=== PATIENT | male | born 1940 | race Caucasian/White ===

== ENCOUNTER 2019-11-21 07:51 | Outpatient (CLI) | payer MEDICARE, OTHER ==
--- NOTE | 2019-11-21 16:00 | RAD ---
PA AND LATERAL CHEST: HISTORY: Preop. COMPARISON: 03/04/2016. FINDINGS: Lung cody appear clear. No infiltrate or vascular congestion. Heart size is normal. Osseous stru ctures unremarkable. IMPRESSION: No acute process. No significant interval change. POS: [facility]
== END 2019-11-21 07:52 | disposition home or self-care (01) ==
LOC: LABBT 07:51
PROVIDERS: ATTEND Thoracic Surgery (Cardiothoracic Vascular Surgery)
DX: Z01.818 Encounter for other preprocedural examination (principal); I35.1 Nonrheumatic aortic (valve) insufficiency; I25.10 Atherosclerotic heart disease of native coronary artery without angina pectoris
CPT/HCPCS: 71046

== ENCOUNTER 2022-04-02 10:05 | Outpatient (CLI) | payer MEDICARE | END 2022-04-02 10:06 | disposition home or self-care (01) | LOC: BICMAMMO 10:05 | PROVIDERS: ATTEND Internal Medicine Rheumatology | DX: M06.4 Inflammatory polyarthropathy (principal); R70.0 Elevated erythrocyte sedimentation rate; M85.851 Other specified disorders of bone density and structure, right thigh; M85.852 Other specified disorders of bone density and structure, left thigh | CPT/HCPCS: 77080 ==

== ENCOUNTER 2022-10-03 13:09 | Inpatient (IN) | payer MEDICARE ==
[2022-10-03] MEDS ORDERED: Ondansetron PF 4 MG/2 ML Vial IVP PRN (14:37)
[2022-10-03] MEDS ORDERED: Benzonatate 100 MG CAP PO PRN (14:49)
[2022-10-03 15:44] VITALS: BMI 24.3
[2022-10-03] MEDS: Sodium Chloride 0.9% 1,000 ML IV SCH (16:37)
[2022-10-03] MEDS: cefTRIAXone\\ROCEPHIN 1 GM in Sodium Chloride 0.9% 100 ML IVPB SCH (16:50)
[2022-10-03] MEDS ORDERED: Heparin 25,000 units/D5W 500 ML IV SCH (18:00)
[2022-10-03] MEDS ORDERED: Aspirin 81 mg Enteric Coated Tablet PO SCH (20:00)
[2022-10-03] MEDS: Ipratropium/Albuterol 3 ML NEB IPPB SCH (20:03)
[2022-10-03] MEDS: Rosuvastatin 20 MG TAB PO SCH (20:26)
[2022-10-03] MEDS: Zolpidem Tartrate 5 MG TAB PO PRN (20:26)
[2022-10-03] MEDS: Azithromycin 500 MG in Sodium Chloride 0.9% 250 ML 250 ML IVPB SCH (20:46)
[2022-10-03] MEDS: Famotidine 20 MG TAB PO SCH (21:06)
[2022-10-03 22:56] LABS: CKMB 13.5 ng/mL (0-6.6)
[2022-10-03] MEDS ORDERED: Nitroglycerin 2% Ointment 1 INCH/1 GM Packet TOP SCH (23:15)
[2022-10-04] MEDS: Ipratropium/Albuterol 3 ML NEB IPPB SCH ×4 (00:16→18:23)
[2022-10-04 02:10] LABS: #Monocytes 0.7 thou/uL (0.11-0.59); #Neutrophils 10.2 thou/uL (1.40-6.50); %Basophils 0.2 % (0.0-1.0); %Lymphocytes 11.8 % (21.0-51.0); %Monocytes 5.8 % (0.0-10.0); %Neutrophils 81.6 % (42.0-75.0); Hemoglobin 10.9 g/dL (14.0-18.0); Mean Corpuscular HGB CONC 33.9 g/dL (32.0-36.0); Mean Corpuscular Volume 106.3 fl (78.0-98.0); Mean Platelet Volume 11.6 fL (7.4-10.4); Platelet Count 122 10x3/uL (130-400); RBC Distribution Width 15.4 % (11.5-14.5); Red Blood Cell (RBC) Count 3.03 mill/uL (4.70-6.10); White Blood Cell (WBC) Count 12.5 10x3/uL (4.8-10.8)
[2022-10-04 02:25] LABS: Hemoglobin A1c 5.4 % (4.0-6.0)
[2022-10-04 02:31] LABS: PTT 162.9 sec (22.9-36.1)
[2022-10-04 02:39] LABS: Anion Gap 13 mmol/L (10-20); BUN (Urea Nitrogen) 28 mg/dL (8.4-25.7); CK (CPK) 143 U/L (30-200); Calc. Creatinine Clearance 54 mL/min (70-130); Calcium 8.7 mg/dL (7.8-10.44); Carbon Dioxide 20 mmol/L (23-31); Cardiac Risk 1.6 (Less than 4.5); Chloride 107 mmol/L (98-107); Cholesterol 81 mg/dl (< 200 Desired); Estimated GFR 68; Glucose 138 mg/dL (83-110); HDL Cholesterol 50 mg/dL (>60 Neg Risk); LDL Cholesterol, Calculated 19 mg/dL; Potassium 3.3 mmol/L (3.5-5.1); Sodium 137 mmol/L (136-145); Triglycerides 61 mg/dL (Less than 150)
[2022-10-04 02:59] LABS: CKMB 9.9 ng/mL (0-6.6)
[2022-10-04 05:33] LABS: Critical Call Chem Troponin I RESULT DECREASING
[2022-10-04] MEDS: Budesonide 0.5 MG/2 ML NEB NEB SCH ×2 (07:52→18:24)
[2022-10-04] MEDS ORDERED: Methotrexate Sodium 2.5 MG TAB PO SCH (09:00)
[2022-10-04] MEDS: predniSONE 5 MG TAB PO SCH (09:06)
[2022-10-04] MEDS: Allopurinol 300 MG TAB PO SCH (09:06)
[2022-10-04] MEDS: Famotidine 20 MG TAB PO SCH ×2 (09:06→20:17)
[2022-10-04] MEDS: Amlodipine 5 MG TAB PO SCH (09:06)
[2022-10-04] MEDS: Folic Acid 1 MG TAB PO SCH (09:07)
[2022-10-04] MEDS: Aspirin 81 mg Enteric Coated Tablet PO SCH (09:07)
[2022-10-04] MEDS: Sodium Chloride 0.9% 1,000 ML IV SCH (09:07)
[2022-10-04] MEDS: Heparin 10,000 UNITS/ 10 ML VIAL SLOW IVP SCH ×2 (14:23→20:58)
[2022-10-04] MEDS: cefTRIAXone\\ROCEPHIN 1 GM in Sodium Chloride 0.9% 100 ML IVPB SCH (14:34)
[2022-10-04] MEDS: Rosuvastatin 20 MG TAB PO SCH (20:17)
[2022-10-04] MEDS: Sacubitril 24MG/Valsartan 26 MG TAB PO SCH (20:17)
[2022-10-04] MEDS: Zolpidem Tartrate 5 MG TAB PO PRN (20:18)
[2022-10-04] MEDS: Azithromycin 500 MG in Sodium Chloride 0.9% 250 ML 250 ML IVPB SCH (20:19)
[2022-10-04] MEDS: Acetaminophen 325 MG TAB PO SCH ×3 (21:34→22:55)
[2022-10-05] MEDS: Ipratropium/Albuterol 3 ML NEB IPPB SCH ×5 (00:16→23:00)
[2022-10-05] MEDS: Acetaminophen 325 MG TAB PO SCH ×5 (03:35→18:03)
[2022-10-05 03:45] LABS: #Monocytes 0.3 thou/uL (0.11-0.59); #Neutrophils 9.4 thou/uL (1.40-6.50); %Basophils 0.2 % (0.0-1.0); %Lymphocytes 8.7 % (21.0-51.0); %Monocytes 2.7 % (0.0-10.0); Hemoglobin 10.8 g/dL (14.0-18.0); Mean Corpuscular HGB CONC 33.9 g/dL (32.0-36.0); Mean Corpuscular Hemoglobin 35.8 pg (27.0-31.0); Mean Corpuscular Volume 105.6 fl (78.0-98.0); Mean Platelet Volume 11.6 fL (7.4-10.4); Platelet Count 139 10x3/uL (130-400); RBC Distribution Width 15.4 % (11.5-14.5); Red Blood Cell (RBC) Count 3.02 mill/uL (4.70-6.10); White Blood Cell (WBC) Count 10.7 10x3/uL (4.8-10.8)
[2022-10-05 04:06] LABS: Anion Gap 12 mmol/L (10-20); BUN (Urea Nitrogen) 29 mg/dL (8.4-25.7); Calc. Creatinine Clearance 54 mL/min (70-130); Calcium 8.5 mg/dL (7.8-10.44); Carbon Dioxide 21 mmol/L (23-31); Chloride 105 mmol/L (98-107); Estimated GFR 69; Glucose 140 mg/dL (83-110); Potassium 3.7 mmol/L (3.5-5.1); Sodium 134 mmol/L (136-145)
[2022-10-05] MEDS: Budesonide 0.5 MG/2 ML NEB NEB SCH ×2 (06:48→18:48)
[2022-10-05] MEDS ORDERED: Sodium Chloride 0.9% 1,000 ML IV SCH (08:02)
[2022-10-05] MEDS: Allopurinol 300 MG TAB PO SCH (08:59)
[2022-10-05] MEDS: Amlodipine 5 MG TAB PO SCH (08:59)
[2022-10-05] MEDS: Famotidine 20 MG TAB PO SCH ×2 (09:00→20:51)
[2022-10-05] MEDS: Folic Acid 1 MG TAB PO SCH (09:00)
[2022-10-05] MEDS: predniSONE 5 MG TAB PO SCH (09:00)
[2022-10-05] MEDS: Aspirin 81 mg Enteric Coated Tablet PO SCH (09:00)
[2022-10-05] MEDS: Sacubitril 24MG/Valsartan 26 MG TAB PO SCH ×2 (09:01→20:51)
[2022-10-05] MEDS ORDERED: Furosemide 40 MG/4 ML VIAL ONE (13:09)
[2022-10-05 13:11] VITALS: BP 120/61
[2022-10-05] MEDS: Heparin 10,000 UNITS/ 10 ML VIAL SLOW IVP SCH ×2 (13:14→21:01)
[2022-10-05] MEDS ORDERED: Morphine 2 MG/ML VIAL SLOW IVP SCH (13:30)
[2022-10-05 13:47] LABS: Actual Bicarbonate (HCO3a) 17.7 mEq/L (22-28); Base Excess (BEa) -4.1 mEq/L (-2.0 to +3.0); Calcium, Ionized (arterial) 1.09 mmol/L (1.12-1.30); Carboxyhemoglobin (COHb) 0.5 gm% (0.0-3.0); Hematocrit-ABG 38 % (42.0-52.0); Hemoglobin (Hb) 12.8 g/dL (14.0-18.0); O2 Tension (PaO2), arterial 66.7 mmHg (> 60.0); Potassium - ABG Lab 3.59 mmol/L (3.70-5.30); pH, Arterial 7.481 (7.35-7.45)
[2022-10-05 13:50] LABS: CO2 Tension 24.3 mmHg (35.0-45.0); Puncture Site Right Radial
[2022-10-05 13:51] LABS: ALV-art Gradient 615.925 mmHg (0-20)
[2022-10-05] MEDS: cefTRIAXone\\ROCEPHIN 1 GM in Sodium Chloride 0.9% 100 ML IVPB SCH (15:14)
[2022-10-05] MEDS ORDERED: Furosemide 40 MG/4 ML VIAL SLOW IVP SCH (15:15)
[2022-10-05] MEDS ORDERED: Spironolactone 25 MG TAB PO SCH (15:45)
[2022-10-05] MEDS: Azithromycin 500 MG in Sodium Chloride 0.9% 250 ML 250 ML IVPB SCH (20:50)
[2022-10-05] MEDS: Zolpidem Tartrate 5 MG TAB PO PRN (20:52)
[2022-10-05] MEDS: Rosuvastatin 20 MG TAB PO SCH (21:01)
[2022-10-06 03:58] LABS: #Monocytes 0.2 thou/uL (0.11-0.59); #Neutrophils 10.2 thou/uL (1.40-6.50); %Basophils 0.1 % (0.0-1.0); %Eosinophils 0.3 % (0.0-10.0); %Lymphocytes 9.1 % (21.0-51.0); %Monocytes 1.4 % (0.0-10.0); %Neutrophils 88.7 % (42.0-75.0); Hemoglobin 11.7 g/dL (14.0-18.0); Mean Corpuscular HGB CONC 33.9 g/dL (32.0-36.0); Mean Corpuscular Hemoglobin 34.6 pg (27.0-31.0); Mean Platelet Volume 12.2 fL (7.4-10.4); Platelet Count 173 10x3/uL (130-400); RBC Distribution Width 14.8 % (11.5-14.5); Red Blood Cell (RBC) Count 3.38 mill/uL (4.70-6.10); White Blood Cell (WBC) Count 11.5 10x3/uL (4.8-10.8)
[2022-10-06 04:28] LABS: Anion Gap 16 mmol/L (10-20); BUN (Urea Nitrogen) 35 mg/dL (8.4-25.7); Calc. Creatinine Clearance 49 mL/min (70-130); Calcium 8.7 mg/dL (7.8-10.44); Carbon Dioxide 18 mmol/L (23-31); Chloride 103 mmol/L (98-107); Estimated GFR 61; Glucose 142 mg/dL (83-110); Potassium 3.6 mmol/L (3.5-5.1); Sodium 133 mmol/L (136-145)
[2022-10-06 04:33] LABS: Mean Corpuscular Volume 102.1 fl (78.0-98.0)
[2022-10-06] MEDS: Budesonide 0.5 MG/2 ML NEB NEB SCH ×2 (06:00→18:30)
[2022-10-06] MEDS: Ipratropium/Albuterol 3 ML NEB IPPB SCH ×3 (06:00→18:30)
[2022-10-06] MEDS ORDERED: Furosemide 40 MG/4 ML VIAL SLOW IVP SCH (06:00)
[2022-10-06] MEDS: Folic Acid 1 MG TAB PO SCH (11:04)
[2022-10-06] MEDS: Famotidine 20 MG TAB PO SCH ×2 (11:04→20:42)
[2022-10-06] MEDS: Aspirin 81 mg Enteric Coated Tablet PO SCH (11:04)
[2022-10-06] MEDS: Allopurinol 300 MG TAB PO SCH (11:05)
[2022-10-06] MEDS: Acetaminophen 325 MG TAB PO PRN (11:05)
[2022-10-06] MEDS: predniSONE 5 MG TAB PO SCH (11:07)
[2022-10-06] MEDS: Sacubitril 24MG/Valsartan 26 MG TAB PO SCH (11:07)
[2022-10-06] MEDS: Spironolactone 25 MG TAB PO SCH (11:08)
[2022-10-06] MEDS: Empagliflozin 10 MG TAB PO SCH (11:10)
[2022-10-06] MEDS: Furosemide 100 MG/10 ML VIAL SLOW IVP SCH (13:54)
[2022-10-06] MEDS: cefTRIAXone\\ROCEPHIN 1 GM in Sodium Chloride 0.9% 100 ML IVPB SCH (13:55)
[2022-10-06] MEDS: Azithromycin 500 MG in Sodium Chloride 0.9% 250 ML 250 ML IVPB SCH (20:39)
[2022-10-06] MEDS: Rosuvastatin 20 MG TAB PO SCH (22:07)
[2022-10-06] MEDS: Zolpidem Tartrate 5 MG TAB PO PRN (22:07)
[2022-10-06] MEDS ORDERED: niCARdipine 25 MG in Sodium Chloride 0.9% 250 ML 250 ML IVPB PRN (22:49)
[2022-10-07] MEDS: Ipratropium/Albuterol 3 ML NEB IPPB SCH ×4 (00:10→18:44)
[2022-10-07 03:56] LABS: #Eosinphils 0.1 thou/uL (0.0-0.7); #Monocytes 0.2 thou/uL (0.11-0.59); #Neutrophils 8.7 thou/uL (1.40-6.50); %Basophils 0.2 % (0.0-1.0); %Eosinophils 1.2 % (0.0-10.0); %Lymphocytes 6.9 % (21.0-51.0); %Monocytes 2.3 % (0.0-10.0); %Neutrophils 89.1 % (42.0-75.0); Hemoglobin 11.5 g/dL (14.0-18.0); Mean Corpuscular HGB CONC 35.1 g/dL (32.0-36.0); Mean Corpuscular Hemoglobin 35.3 pg (27.0-31.0); Mean Corpuscular Volume 100.6 fl (78.0-98.0); Platelet Count 169 10x3/uL (130-400); RBC Distribution Width 14.6 % (11.5-14.5); Red Blood Cell (RBC) Count 3.26 mill/uL (4.70-6.10); White Blood Cell (WBC) Count 9.7 10x3/uL (4.8-10.8)
[2022-10-07 05:04] LABS: Anion Gap 15 mmol/L (10-20); BUN (Urea Nitrogen) 35 mg/dL (8.4-25.7); Calc. Creatinine Clearance 46 mL/min (70-130); Calcium 8.8 mg/dL (7.8-10.44); Carbon Dioxide 21 mmol/L (23-31); Chloride 102 mmol/L (98-107); Estimated GFR 54; Glucose 108 mg/dL (83-110); Potassium 3.1 mmol/L (3.5-5.1); Sodium 135 mmol/L (136-145)
[2022-10-07] MEDS: Furosemide 100 MG/10 ML VIAL SLOW IVP SCH ×2 (05:54→14:33)
[2022-10-07] MEDS: predniSONE 5 MG TAB PO SCH (07:14)
[2022-10-07] MEDS: Empagliflozin 10 MG TAB PO SCH (07:14)
[2022-10-07] MEDS: Spironolactone 25 MG TAB PO SCH (07:14)
[2022-10-07] MEDS: Aspirin 81 mg Enteric Coated Tablet PO SCH (07:14)
[2022-10-07] MEDS: Folic Acid 1 MG TAB PO SCH (07:15)
[2022-10-07] MEDS: Famotidine 20 MG TAB PO SCH ×2 (07:15→20:59)
[2022-10-07] MEDS: Allopurinol 300 MG TAB PO SCH (07:15)
[2022-10-07] MEDS: Budesonide 0.5 MG/2 ML NEB NEB SCH ×2 (07:42→18:45)
[2022-10-07] MEDS ORDERED: Potassium Chloride 20 MEQ TAB PO SCH (08:15)
[2022-10-07] MEDS ORDERED: Electrolyte Replacement Protocol 1 EACH FS SCH (08:15)
[2022-10-07] MEDS ORDERED: Electrolyte Replacement Protocol FS PRN (08:15)
[2022-10-07] MEDS: cefTRIAXone\\ROCEPHIN 1 GM in Sodium Chloride 0.9% 100 ML IVPB SCH (14:33)
[2022-10-07] MEDS: Azithromycin 500 MG in Sodium Chloride 0.9% 250 ML 250 ML IVPB SCH (20:01)
[2022-10-07] MEDS: Rosuvastatin 20 MG TAB PO SCH (20:59)
[2022-10-07] MEDS: Acetaminophen 325 MG TAB PO PRN (21:27)
[2022-10-07 21:52] VITALS: TEMP 97.7
== END 2022-10-07 22:56 | disposition short-term general hospital (02) | DRG 280 ==
LOC: 2NO 15:02 → CCU 10-05 14:33
PROVIDERS: ADMIT Specialist; ATTEND Specialist
PROC: 4A033R1 Measurement of Arterial Saturation, Peripheral, Percutaneous Approach (ICD-10-PCS; principal; 2022-10-03)
PROC: 5A0945A Assistance with Respiratory Ventilation, 24-96 Consecutive Hours, High Flow/Velocity Cannula (ICD-10-PCS; 2022-10-05)
DX: I48.91 Unspecified atrial fibrillation (principal); J18.9 Pneumonia, unspecified organism; I21.A1 Myocardial infarction type 2; J96.01 Acute respiratory failure with hypoxia; I51.0 Cardiac septal defect, acquired; R64 Cachexia; I42.9 Cardiomyopathy, unspecified; E78.5 Hyperlipidemia, unspecified; I11.0 Hypertensive heart disease with heart failure; I50.9 Heart failure, unspecified; I34.0 Nonrheumatic mitral (valve) insufficiency; M06.9 Rheumatoid arthritis, unspecified; M10.9 Gout, unspecified; Z95.1 Presence of aortocoronary bypass graft; Z98.84 Bariatric surgery status; Z95.2 Presence of prosthetic heart valve; Z98.52 Vasectomy status; Z79.52 Long term (current) use of systemic steroids; Z79.899 Other long term (current) drug therapy; Z82.49 Family history of ischemic heart disease and other diseases of the circulatory system; Z87.891 Personal history of nicotine dependence; Z68.24 Body mass index [BMI] 24.0-24.9, adult
CPT/HCPCS: 36415; 71045; 80048; 80061; 82550; 82553; 82805; 83036; 83880; 84484; 85025; 85730; 93005; 93010; 93306; 94640; J0456; J0696; J1644; J1650; J1940; J2272; J3490; J7050; J7512; J7620; J7626; J8610

== ENCOUNTER 2022-12-04 06:47 | Emergency (ER) | payer MEDICARE ==
[2022-12-04 09:39] LABS: Bilirubin Negative (Negative); Blood, Urine Negative (Negative); CAUTI Indications for Culture Dysuria,urgency,freq; Clarity Clear (Clear); Glucose, Urine (Dipstick) 70 mg/dL (Negative); Ketone, Urine Negative (Negative); Leukocyte 500 Leu/uL (Negative); Nitrite Negative (Negative); Protein, Urine (Dipstick) 20 mg/dL (Neg-Trace); RBC/HPF 0-3 HPF (0-3); Specific Gravity, Urine 1.018 (1.002-1.036); Squamous Epithelial None Seen HPF (0-3); Urobilinogen Normal mg/dL (Less than 2); pH, Urine 6.5 (5.0-9.0)
[2022-12-04 09:46] LABS: Bacteria/HPF 1+ HPF (None Seen); WBC/HPF 21-50 HPF (0-3)
[2022-12-04 09:53] LABS: Urine Culture Reflex Yes Yes
== END 2022-12-04 10:40 | disposition home or self-care (01) ==
LOC: ERS 06:47
DX: T83.011A Breakdown (mechanical) of indwelling urethral catheter, initial encounter (principal); N39.0 Urinary tract infection, site not specified; I10 Essential (primary) hypertension; Z79.899 Other long term (current) drug therapy; Z87.891 Personal history of nicotine dependence
CPT/HCPCS: 51702; 81001; 87086

== ENCOUNTER 2023-06-11 14:42 | Outpatient (CLI) | payer MEDICARE | END 2023-06-11 14:43 | disposition home or self-care (01) | LOC: RAD 14:42 | PROVIDERS: ATTEND Internal Medicine | DX: R06.00 Dyspnea, unspecified (principal); R91.8 Other nonspecific abnormal finding of lung field; J84.10 Pulmonary fibrosis, unspecified | CPT/HCPCS: 36415; 71046; 80048; 83520; 83880; 85025; 86140; 86200 ==

== ENCOUNTER 2023-06-28 20:35 | Inpatient (IN) | payer MEDICARE ==
[~2023-06-28 20:35] MED LIST: Iopamidol 370 76% 100 ML VIAL ONE
[2023-06-28 21:18] LABS: #Monocytes 0.2 thou/uL (0.11-0.59); #Neutrophils 3.5 thou/uL (1.40-6.50); %Basophils 0.2 % (0.0-1.0); %Eosinophils 0.4 % (0.0-10.0); Hematocrit 38.7 % (42.0-52.0); Mean Corpuscular HGB CONC 33.6 g/dL (32.0-36.0); Mean Corpuscular Hemoglobin 34.9 pg (27.0-31.0); Mean Platelet Volume 10.6 fL (7.4-10.4); Platelet Count 139 10x3/uL (130-400); Red Blood Cell (RBC) Count 3.72 mill/uL (4.70-6.10); White Blood Cell (WBC) Count 4.8 10x3/uL (4.8-10.8)
[2023-06-28 21:36] LABS: ALT (SGPT) 26 U/L (8-55); AST (SGOT) 36 U/L (5-34); Albumin 3.6 g/dL (3.4-4.8); Alkaline Phosphatase 75 U/L (40-110); Anion Gap 16 mmol/L (10-20); BUN (Urea Nitrogen) 31 mg/dL (8.4-25.7); Bilirubin, Total 0.5 mg/dL (0.2-1.2); Calc. Creatinine Clearance 0 mL/min (70-130); Calcium 8.7 mg/dL (7.8-10.44); Carbon Dioxide 20 mmol/L (23-31); Chloride 102 mmol/L (98-107); Estimated GFR 48; Globulin 3.3 g/dL (2.4-3.5); Glucose 102 mg/dL (83-110); Potassium 5.2 mmol/L (3.5-5.1); Protein, Total 6.9 g/dL (5.8-8.1); Sodium 133 mmol/L (136-145)
[2023-06-28] MEDS ORDERED: predniSONE 20 MG TAB ONE (21:37)
[2023-06-28] MEDS ORDERED: Sodium Chloride 0.9% 100 ML ONE (21:38)
[2023-06-28] MEDS ORDERED: Ipratropium/Albuterol 3 ML NEB ONE (21:38)
[2023-06-28] MEDS ORDERED: cefTRIAXone (ROCEPHIN) 2 GM VIAL ONE (21:38)
[2023-06-28] MEDS ORDERED: Azithromycin 500 MG VIAL ONE (21:38)
[2023-06-28] MEDS ORDERED: Magnesium 2 GM/50 ML BAG (IN WATER) ONE (21:38)
[2023-06-28 21:45] LABS: Actual Bicarbonate (HCO3v) 20.4 mEq/L (22-28); Base Excess -2.5 mEq/L (-2.0 to +3.0); Calcium, Ionized (venous) 1.05 mmol/L (1.16-1.32); Chloride (VBG) 101 mmol/L (98-106); Hematocrit-VBG 40 % (42.0-52.0); Hemoglobin (Hb) 13.7 g/dL (12.6-17.4); Potassium (VBG) 5.01 mmol/L (3.70-5.30); Sodium 131 mmol/L (133-146)
[2023-06-28] MEDS ORDERED: Nitroglycerin 2% Ointment 1 INCH/1 GM Packet ONE (22:55)
[2023-06-28] MEDS ORDERED: Furosemide 40 MG (4 mL) VIAL ONE (22:55)
[2023-06-28] MEDS ORDERED: Ondansetron PF 4 MG/2 ML Vial IVP PRN (23:44)
[2023-06-28] MEDS ORDERED: Acetaminophen 325 MG TAB PO PRN (23:44)
[2023-06-29] MEDS ORDERED: Pantoprazole 40 MG VIAL ONE ×2 (00:50→11:10)
[2023-06-29] MEDS: Pantoprazole 40 MG VIAL IVP SCH ×2 (00:56→11:23)
[2023-06-29] MEDS: Sodium Chloride 0.9% 500 ML IV SCH (00:56)
[2023-06-29 01:25] LABS: Troponin I 0.026 ng/mL (< 0.028)
[2023-06-29] MEDS ORDERED: Hydrocortisone Sod Succ/PF 100 mg/2 ml Vial ONE ×4 (02:08→14:17)
[2023-06-29] MEDS: Hydrocortisone Sod Succ/PF 100 mg/2 ml Vial IVP SCH ×2 (02:24→11:22)
[2023-06-29] MEDS: Ipratropium/Albuterol 3 ML NEB NEB SCH (03:01)
[2023-06-29 04:12] LABS: #Neutrophils 2.7 thou/uL (1.40-6.50); %Basophils 0.3 % (0.0-1.0); %Lymphocytes 27.4 % (21.0-51.0); %Monocytes 1.1 % (0.0-10.0); %Neutrophils 70.7 % (42.0-75.0); Hematocrit 35.3 % (42.0-52.0); Mean Corpuscular Hemoglobin 34.8 pg (27.0-31.0); Mean Corpuscular Volume 102.3 fl (78.0-98.0); Mean Platelet Volume 11.1 fL (7.4-10.4); Platelet Count 119 10x3/uL (130-400); RBC Distribution Width 16.1 % (11.5-14.5); Red Blood Cell (RBC) Count 3.45 mill/uL (4.70-6.10); White Blood Cell (WBC) Count 3.8 10x3/uL (4.8-10.8)
[2023-06-29 04:23] LABS: INR-International Normal Ratio 1.1; Prothrombin Time 13.9 sec (12.0-14.7)
[2023-06-29 04:30] LABS: Iron 20 ug/dL (65-175); Iron Binding Capacity, Total 171 mcg/dL (261-462); Magnesium 2.3 mg/dL (1.6-2.6)
[2023-06-29 04:31] LABS: Anion Gap 17 mmol/L (10-20); BUN (Urea Nitrogen) 28 mg/dL (8.4-25.7); Calc. Creatinine Clearance 39 mL/min (70-130); Calcium 8.4 mg/dL (7.8-10.44); Carbon Dioxide 17 mmol/L (23-31); Chloride 103 mmol/L (98-107); Estimated GFR 49; Glucose 144 mg/dL (83-110); Iron 19 ug/dL (65-175); Iron Binding Capacity, Total 169 mcg/dL (261-462); Potassium 4.5 mmol/L (3.5-5.1); Sodium 132 mmol/L (136-145)
[2023-06-29 04:59] LABS: Influenza A by NAA DETECTED (NotDetected); Influenza B by NAA Not Detected (NotDetected); SARS-CoV-2 NAA Rapid Test Not Detected (NotDetected)
[2023-06-29] MEDS: Vancomycin (BATCH) 1.5 GM in Premix 1 BAG IVPB SCH (05:36)
[2023-06-29] MEDS ORDERED: methylPREDNISolone Sod Succ 40 MG VIAL IVP SCH (06:00)
[2023-06-29] MEDS ORDERED: Ipratropium/Albuterol 3 ML NEB ONE ×2 (07:19→14:36)
[2023-06-29] MEDS ORDERED: Oseltamivir 75 MG CAP PO SCH (10:00)
[2023-06-29] MEDS ORDERED: Cefepime 2 GM VIAL ONE (11:06)
[2023-06-29] MEDS ORDERED: Sodium Chloride 0.9% 100 ML ONE (11:06)
[2023-06-29] MEDS: Cefepime 2 GM in Sodium Chloride 0.9% 100 ML IVPB SCH (11:22)
[2023-06-29] MEDS ORDERED: cefTRIAXone\\ROCEPHIN 2 GM in Sodium Chloride 0.9% 100 ML IVPB SCH (22:00)
[2023-06-29] MEDS ORDERED: Azithromycin 500 MG in Sodium Chloride 0.9% 250 ML 250 ML IVPB SCH (23:00)
[2023-06-29] MEDS: Vancomycin 1 GM in Premix 1 BAG IVPB SCH (23:15)
[2023-06-29] MEDS: Oseltamivir 75 MG CAP PO SCH (23:15)
[2023-06-30 05:36] LABS: #Monocytes 0.2 thou/uL (0.11-0.59); #Neutrophils 4.6 thou/uL (1.40-6.50); %Basophils 0.2 % (0.0-1.0); %Lymphocytes 11.1 % (21.0-51.0); %Monocytes 2.8 % (0.0-10.0); %Neutrophils 85.5 % (42.0-75.0); Hematocrit 32.9 % (42.0-52.0); Hemoglobin 11.3 g/dL (14.0-18.0); Mean Corpuscular HGB CONC 34.3 g/dL (32.0-36.0); Mean Corpuscular Hemoglobin 33.9 pg (27.0-31.0); Mean Corpuscular Volume 98.8 fl (78.0-98.0); Mean Platelet Volume 11.1 fL (7.4-10.4); Platelet Count 134 10x3/uL (130-400); Red Blood Cell (RBC) Count 3.33 mill/uL (4.70-6.10); White Blood Cell (WBC) Count 5.4 10x3/uL (4.8-10.8)
[2023-06-30 05:59] LABS: Anion Gap 13 mmol/L (10-20); BUN (Urea Nitrogen) 25 mg/dL (8.4-25.7); Calc. Creatinine Clearance 48 mL/min (70-130); Calcium 8.5 mg/dL (7.8-10.44); Carbon Dioxide 18 mmol/L (23-31); Chloride 105 mmol/L (98-107); Estimated GFR 63; Glucose 145 mg/dL (83-110); Sodium 132 mmol/L (136-145); Vancomycin, Random 21.4 ug/mL (See Comment)
[2023-06-30] MEDS: Hydrocortisone Sod Succ/PF 100 mg/2 ml Vial IVP SCH (06:35)
[2023-06-30 07:32] LABS: Legionella Urinary Ag Negative (Negative); Strep pneumo Urine Ag NEGATIVE (NEGATIVE)
[2023-06-30 08:50] VITALS: BMI 21.5
[2023-06-30] MEDS ORDERED: Non-Formulary Item 1 EACH (Nebivolol Hcl [Nebivolol Hcl] 10 MG Tablet) PO SCH (09:00)
[2023-06-30] MEDS ORDERED: FINERENONE 10 MG PO SCH (09:00)
[2023-06-30] MEDS: Tamsulosin HCl 0.4 MG CAP PO SCH (09:11)
[2023-06-30] MEDS: Finasteride 5 MG TAB PO SCH (09:11)
[2023-06-30] MEDS: Nebivolol HCl 5 MG TAB PO SCH (09:12)
[2023-06-30] MEDS: FINERENONE 10 MG PO SCH (12:18)
[2023-06-30] MEDS: Furosemide 20 MG (2 mL) VIAL SLOW IVP SCH (14:29)
[2023-06-30] MEDS: Cefepime 1 GM in Sodium Chloride 0.9% 100 ML IVPB SCH (21:38)
[2023-06-30] MEDS: Oseltamivir 6 MG/ML ORAL SUSP PO SCH (21:39)
[2023-06-30] MEDS: Senokot S 8.6-50 MG TAB PO SCH (21:48)
[2023-07-01] MEDS: Vancomycin (BATCH) 1.25 GM in Premix 1 BAG IVPB SCH (00:13)
[2023-07-01 05:26] LABS: #Monocytes 0.2 thou/uL (0.11-0.59); #Neutrophils 4.3 thou/uL (1.40-6.50); %Lymphocytes 11.7 % (21.0-51.0); %Monocytes 4.4 % (0.0-10.0); %Neutrophils 83.3 % (42.0-75.0); Hematocrit 32.2 % (42.0-52.0); Hemoglobin 11.1 g/dL (14.0-18.0); Mean Corpuscular HGB CONC 34.5 g/dL (32.0-36.0); Mean Corpuscular Hemoglobin 33.8 pg (27.0-31.0); Mean Corpuscular Volume 98.2 fl (78.0-98.0); Mean Platelet Volume 10.6 fL (7.4-10.4); Platelet Count 138 10x3/uL (130-400); RBC Distribution Width 15.9 % (11.5-14.5); Red Blood Cell (RBC) Count 3.28 mill/uL (4.70-6.10); White Blood Cell (WBC) Count 5.2 10x3/uL (4.8-10.8)
[2023-07-01 05:46] LABS: Anion Gap 13 mmol/L (10-20); BUN (Urea Nitrogen) 20 mg/dL (8.4-25.7); Calc. Creatinine Clearance 50 mL/min (70-130); Calcium 8.2 mg/dL (7.8-10.44); Carbon Dioxide 19 mmol/L (23-31); Chloride 104 mmol/L (98-107); Estimated GFR 69; Glucose 129 mg/dL (83-110); Magnesium 2.4 mg/dL (1.6-2.6); Potassium 3.1 mmol/L (3.5-5.1); Sodium 133 mmol/L (136-145)
[2023-07-01 05:47] LABS: Vancomycin, Random 26.4 ug/mL (See Comment)
[2023-07-01] MEDS ORDERED: Nebivolol HCl 5 MG TAB PO SCH (09:00)
[2023-07-01] MEDS: Senokot S 8.6-50 MG TAB PO SCH (09:02)
[2023-07-01] MEDS: Aspirin Chewable 81 MG TAB PO SCH (09:02)
[2023-07-01] MEDS: Potassium Chloride 20 MEQ TAB PO SCH ×2 (09:23→16:39)
[2023-07-01] MEDS: Oseltamivir 75 MG CAP PO SCH (20:50)
[2023-07-02] MEDS: Potassium Chloride 20 MEQ TAB PO SCH (13:27)
[2023-07-03 05:07] LABS: #Monocytes 0.5 thou/uL (0.11-0.59); #Neutrophils 5.2 thou/uL (1.40-6.50); %Basophils 0.1 % (0.0-1.0); %Lymphocytes 12.4 % (21.0-51.0); %Monocytes 7.5 % (0.0-10.0); %Neutrophils 78.4 % (42.0-75.0); Hematocrit 34.9 % (42.0-52.0); Mean Corpuscular HGB CONC 34.4 g/dL (32.0-36.0); Mean Corpuscular Hemoglobin 33.8 pg (27.0-31.0); Mean Corpuscular Volume 98.3 fl (78.0-98.0); Mean Platelet Volume 10.8 fL (7.4-10.4); Platelet Count 127 10x3/uL (130-400); RBC Distribution Width 15.9 % (11.5-14.5); Red Blood Cell (RBC) Count 3.55 mill/uL (4.70-6.10); White Blood Cell (WBC) Count 6.7 10x3/uL (4.8-10.8)
[2023-07-03 05:27] LABS: Anion Gap 13 mmol/L (10-20); BUN (Urea Nitrogen) 23 mg/dL (8.4-25.7); Calc. Creatinine Clearance 54 mL/min (70-130); Calcium 8.1 mg/dL (7.8-10.44); Carbon Dioxide 22 mmol/L (23-31); Chloride 102 mmol/L (98-107); Estimated GFR 75; Glucose 125 mg/dL (83-110); Potassium 3.8 mmol/L (3.5-5.1); Sodium 133 mmol/L (136-145)
[2023-07-03] MEDS: FINERENONE 10 MG PO SCH (09:48)
[2023-07-03] MEDS: Furosemide 20 MG (2 mL) VIAL SLOW IVP SCH (09:48)
[2023-07-04 05:12] LABS: #Monocytes 0.6 thou/uL (0.11-0.59); #Neutrophils 7.4 thou/uL (1.40-6.50); %Basophils 0.2 % (0.0-1.0); %Eosinophils 0.1 % (0.0-10.0); %Lymphocytes 9.5 % (21.0-51.0); %Monocytes 6.8 % (0.0-10.0); %Neutrophils 80.5 % (42.0-75.0); Hematocrit 36.4 % (42.0-52.0); Hemoglobin 12.4 g/dL (14.0-18.0); Mean Corpuscular HGB CONC 34.1 g/dL (32.0-36.0); Mean Corpuscular Hemoglobin 34.2 pg (27.0-31.0); Mean Corpuscular Volume 100.3 fl (78.0-98.0); Mean Platelet Volume 11.3 fL (7.4-10.4); Platelet Count 147 10x3/uL (130-400); RBC Distribution Width 15.9 % (11.5-14.5); Red Blood Cell (RBC) Count 3.63 mill/uL (4.70-6.10); White Blood Cell (WBC) Count 9.2 10x3/uL (4.8-10.8)
[2023-07-04 05:35] LABS: Albumin 3.1 g/dL (3.4-4.8); Anion Gap 13 mmol/L (10-20); BUN (Urea Nitrogen) 26 mg/dL (8.4-25.7); Bilirubin, Total 0.9 mg/dL (0.2-1.2); Calc. Creatinine Clearance 48 mL/min (70-130); Calcium 8.7 mg/dL (7.8-10.44); Carbon Dioxide 25 mmol/L (23-31); Chloride 101 mmol/L (98-107); Estimated GFR 66; Glucose 131 mg/dL (83-110); Sodium 135 mmol/L (136-145)
[2023-07-04 05:36] LABS: ALT (SGPT) 38 U/L (8-55); AST (SGOT) 26 U/L (5-34); Alkaline Phosphatase 59 U/L (40-110); Globulin 2.9 g/dL (2.4-3.5)
[2023-07-04] MEDS: Furosemide 20 MG TAB PO SCH (10:50)
[2023-07-04] MEDS: Methotrexate Sodium 2.5 MG TAB PO SCH (10:51)
[2023-07-04 16:57] VITALS: BP 121/78; TEMP 98
== END 2023-07-04 17:40 | disposition hospice, home (50) | DRG 194 ==
LOC: ERS 20:35 → ERHOLD 23:24 → OBSVTOIN 23:49 → 2NO 06-29 15:47
PROVIDERS: ADMIT Internal Medicine; ATTEND Internal Medicine
DX: J10.00 Influenza due to other identified influenza virus with unspecified type of pneumonia (principal); D84.9 Immunodeficiency, unspecified; E87.1 Hypo-osmolality and hyponatremia; K92.1 Melena; I24.89 Other forms of acute ischemic heart disease; I13.0 Hypertensive heart and chronic kidney disease with heart failure and stage 1 through stage 4 chronic kidney disease, or unspecified chronic kidney disease; I50.42 Chronic combined systolic (congestive) and diastolic (congestive) heart failure; N17.9 Acute kidney failure, unspecified; I47.29 Other ventricular tachycardia; E87.6 Hypokalemia; J44.9 Chronic obstructive pulmonary disease, unspecified; I45.10 Unspecified right bundle-branch block; I25.10 Atherosclerotic heart disease of native coronary artery without angina pectoris; Z51.5 Encounter for palliative care; Z66 Do not resuscitate; E78.5 Hyperlipidemia, unspecified; M06.9 Rheumatoid arthritis, unspecified; M10.9 Gout, unspecified; N18.30 Chronic kidney disease, stage 3 unspecified; R33.9 Retention of urine, unspecified; D63.1 Anemia in chronic kidney disease; K21.9 Gastro-esophageal reflux disease without esophagitis; I95.1 Orthostatic hypotension; I08.1 Rheumatic disorders of both mitral and tricuspid valves; E87.5 Hyperkalemia; N28.9 Disorder of kidney and ureter, unspecified; Z79.899 Other long term (current) drug therapy; Z95.2 Presence of prosthetic heart valve; Z95.1 Presence of aortocoronary bypass graft; Z95.0 Presence of cardiac pacemaker; Z95.818 Presence of other cardiac implants and grafts; Z98.890 Other specified postprocedural states; Z98.52 Vasectomy status; Z82.49 Family history of ischemic heart disease and other diseases of the circulatory system; Z87.891 Personal history of nicotine dependence
CPT/HCPCS: 36415; 71045; 71275; 80048; 80053; 80202; 82274; 82533; 82728; 82805; 83540; 83550; 83605; 83735; 83880; 84484; 85025; 85610; 85730; 86850; 86900; 86901; 87040; 87081; 87449; 87899; 93005; 93306; 94640; 96365; 96366; 96367; C9113; J0456; J0692; J0696; J1720; J1940; J3370; J3370-JW; J3475; J3490; J7030; J7512; J7620; J8610; Q9967